=== PATIENT | male | born 1965 | race Caucasian/White ===

== ENCOUNTER → 2020-01-09 | Outpatient (CLI) | payer OTHER ==
[~2020-01-09] MED LIST: CONTRAST GIVEN. MC PRN; IOHEXOL 240 MG/ML 50ML VIAL. PO ONE; IOHEXOL 300 MG/ML 100ML VIAL. IV ONE
[2020-01-09 08:50] LABS: GFR 77.3
--- NOTE | 2020-01-09 09:55 | RAD ---
EXAM: Abdomen and pelvis CT with intravenous contrast. HISTORY: Ventral hernia. TECHNIQUE: Computed tomographic images of the abdomen and pelvis were obtained following the administration of intravenous contrast. Multiplanar reformatting was performed. *One or more of the following individualized dose reduction techniques were utilized for this examination: 1. Automated exposure control. 2. Adjustment of the mA and/or kV according to patient size. 3. Use of iterative reconstruction technique. COMPARISON: None. FINDINGS: Evaluation of the lower thorax demonstrates no infiltrate or pleural effusion. There is a 2 mm nodule within the posterior right lower lobe which is likely a faintly calcified granuloma. This is benign in appearance. There is no suspicious hepatic lesion. The gallbladder, pancreas and spleen are unremarkable. There is a small proximal duodenal diverticulum. The adrenal glands are unremarkable. There is no suspicious renal lesion or hydronephrosis. There is a ventral abdominal wall hernia to the right of midline containing fat and a segment of small bowel. The hernia defect measures approximately 6.0 cm transversely and 9.0 cm craniocaudally. There is no evidence of bowel incarceration or mechanical obstruction. There is a surgical anastomosis within the small bowel proximal to the hernia consistent with partial bowel resection. There are few distal colonic diverticula. There is no evidence of diverticulitis. The urinary bladder is unremarkable. There is stranding throughout the root of mesentery and there are multiple enlarged lymph nodes within the root of the mesentery. No retroperitoneal lymphadenopathy is seen. There is no suspicious osseous lesion. There are degenerative changes involving the spine. There is grade 1 anterolisthesis with bilateral pars defects at L5-S1. There is an incidental limbus vertebrae at L4. IMPRESSION: 1. Moderate to large ventral abdominal wall hernia to the right of midline at the level of the umbilicus containing fat and small bowel loop, measuring 9.0 x 6.0 cm. There is no evidence of bowel incarceration or mechanical obstruction related to the hernia. 2. Findings gated with partial small bowel resection. 3. Colonic diverticulosis. 4. Stranding and lymphadenopathy within the root of the mesentery. This is nonspecific and can be seen with mesenteric panniculitis. The possibility of an underlying neoplastic etiology is not completely excluded. Electronically signed by: Jewels Martinez MD (01/09/2020 9:52 AM) [id number]
== END ==
LOC: CT 09:13
PROVIDERS: ATTEND Surgery
DX: K43.9 Ventral hernia without obstruction or gangrene (principal); K57.30 Diverticulosis of large intestine without perforation or abscess without bleeding
CPT/HCPCS: 36415; 74177; 82565; 84520; Q9966; Q9967

== ENCOUNTER → 2020-01-10 | Outpatient (CLI) | payer OTHER | LOC: LAB 13:02 | PROVIDERS: ATTEND Surgery | DX: Z01.812 Encounter for preprocedural laboratory examination (principal); Z20.828 Contact with and (suspected) exposure to other viral communicable diseases; K43.9 Ventral hernia without obstruction or gangrene | CPT/HCPCS: U0003 ==

== ENCOUNTER 2020-01-14 06:04 | Observation (INO) | payer OTHER ==
[2020-01-14] VITALS (12 sets, daily range): BP systolic 104–132; BP diastolic 62–84
[~2020-01-14] VITALS: Ht 177.8 cm; Wt 101.5 kg
[2020-01-14] MEDS ORDERED: OMEP40CA45 PO (06:33)
[2020-01-14] MEDS ORDERED: INSU100I32 SQ (06:33)
[2020-01-14] MEDS ORDERED: GABA600T7 PO (06:33)
[2020-01-14] MEDS ORDERED: LOSA100T14 PO (06:33)
[2020-01-14] MEDS ORDERED: ASPI-630 PO (06:33)
[2020-01-14] MEDS ORDERED: EMPA25TA PO (06:33)
[2020-01-14] MEDS ORDERED: METF-658 PO (06:33)
[2020-01-14] MEDS ORDERED: GLIM4TAB8 PO (06:33)
[2020-01-14] MEDS ORDERED: VENL37.5 PO (06:33)
[2020-01-14] MEDS ORDERED: CRESTOR40 MG PO (06:33)
[2020-01-14] MEDS: INSULIN LISPRO 100 UNIT/ML 3ML VIAL for OP,RR ONLY. SQ PRN ×3 (06:48→13:32)
[2020-01-14] MEDS ORDERED: HYDROmorphone 2 MG/ML VIAL IV PRN ×3 (07:00→12:15)
[2020-01-14] MEDS ORDERED: fentaNYL PF VIAL 100 MCG/2 ML VIAL IV PRN (07:00)
[2020-01-14] MEDS ORDERED: LIDOCAINE 1% PF 2 ML VIAL. ID PRN (07:00)
[2020-01-14] MEDS ORDERED: IV RINGERS,LACTATED 1000ML 1,000 ML IV SCH (07:00)
[2020-01-14] MEDS ORDERED: ONDANSETRON PF 4 MG/2 ML VIAL. IV PRN (07:00)
[2020-01-14] MEDS ORDERED: MORPHINE SULFATE 2 MG/ML VIAL. IV PRN (07:00)
[2020-01-14] MEDS ORDERED: PROCHLORPERAZINE 10 MG/2 ML VIAL. IV PRN (07:00)
[2020-01-14] MEDS ORDERED: ROCURONIUM 50 MG/5 ML VIAL. ONE ×2 (07:12→09:07)
[2020-01-14] MEDS ORDERED: DEXAMETHASONE SOD PHOS 4 MG/ML VIAL ONE (07:13)
[2020-01-14] MEDS ORDERED: SEVOFLURANE 61 TO 120 MINUTES. IH ONE (07:13)
[2020-01-14] MEDS ORDERED: MIDAZOLAM HCL/PF 2 MG/2 ML VIAL. ONE (07:13)
[2020-01-14] MEDS ORDERED: PROPOFOL 10 MG/ML (20ML) VIAL. IV ONE (07:13)
[2020-01-14] MEDS ORDERED: fentaNYL PF VIAL 100 MCG/2 ML VIAL ONE ×4 (07:13→12:46)
[2020-01-14] MEDS ORDERED: ONDANSETRON PF 4 MG/2 ML VIAL. ONE (07:13)
[2020-01-14] MEDS ORDERED: FAMOTIDINE 20 MG/2 ML VIAL ONE (07:13)
[2020-01-14] MEDS ORDERED: KETOROLAC 30 MG/ML VIAL. ONE (07:13)
[2020-01-14] MEDS ORDERED: LIDOCAINE 2% PF 5 ML VIAL. ONE (07:14)
[2020-01-14] MEDS ORDERED: ePHEDrine PF IN SALINE 50 MG/10 ML SYRINGE. IV ONE (08:03)
[2020-01-14] MEDS ORDERED: PHENYLEPHRINE 10 MG/ML VIAL. ONE (08:37)
[2020-01-14] MEDS ORDERED: GLYCOPYRROLATE 1 MG/5 ML VIAL. ONE (10:06)
[2020-01-14] MEDS ORDERED: NEOSTIGMINE METHYLSULFATE 5 MG/5 ML SYRINGE. ONE (10:06)
[2020-01-14] MEDS: IV NORMAL SALINE 1000ML BAG 1,000 ML IV SCH (12:07)
[2020-01-14] MEDS ORDERED: 0.9 % SODIUM CHLORIDE 10 ML DISP.SYRIN. IV PRN (12:15)
[2020-01-14] MEDS ORDERED: ONDANSETRON PF 4 MG/2 ML VIAL. IVP PRN (12:15)
[2020-01-14] MEDS ORDERED: NALOXONE 0.4 MG/ML VIAL. IV PRN (12:15)
[2020-01-14] MEDS ORDERED: oxyCODONE/APAP 5/325 1 TAB TABLET PO PRN (12:15)
[2020-01-14] MEDS ORDERED: INSULIN LISPRO 100 UNIT/ML 3ML VIAL for OP,RR ONLY. SQ ONE ×2 (13:00)
[2020-01-14] MEDS: fentaNYL PF VIAL 100 MCG/2 ML VIAL IV PRN ×2 (13:15→13:34)
--- NOTE | 2020-01-14 13:32 | PDOC4 ---
Operative Note Operative Note Preoperative Diagnosis: Ventral hernia Postoperative Diagnosis: Same Procedure: Extensive adhesiolysis (requiring 1 1/2 hours), ventral hernia repair with mesh Surgeon: Patric Industrial Renderer: Dr Andrew SMITH Anesthesia: Gen EBL: 150 ml Specimen: Hernia sac to pathology Drains: 19FR TEREZA drain to subcutaneous space Complications: None Indications: The patient is a 54 year old male who was referred with a ventral hernia following prior abdominal surgery. The details and risks of surgical repair of the hernia were discussed. The risks include bleeding, infection, recurrence, bowel injury, pain, scar tissues, anesthesia risk, potential need for additional surgery or procedure. He understands and would like to proceed. Description: The patient was taken to the operating room and laid supine. General anesthesia was performed. The abdomen was prepped with chloroprep and draped with sterile towels, sheets, and an ioban. A vertical midline incision was made excising the prior scar. Cautery dissection was carried to the fascia. The fascial defect was identified, and there was marked and severe adhesions involving some small bowel to the hernia sac. An extensive lysis of adhesions was required to free the small intestine from the abdominal wall and hernia sac. The required meticulous dissection of the small bowel due to the dense nature of the adhesions. One and one half hours were required for this dissection. The hernia sac showed a prominent inflammatory reaction that seem atypical. This seemed to be concentrated in the areas of multiple non absorbing sutures placed during his prior surgery. It seemed most likely a severe foreign body reaction of the small bowel to the sutures. Gradually during the dissection the sutures were removed and the small bowel was fully mobilized. There were no enterotomies made and the small bowel appeared viable. There was a small serosal defect which was oversewn with 3-0 Vicryl. The hernia defect was then apparent and appeared fairly broad based. Subcutaneous flaps were developed to mobilize the anterior fascia from the skin. A retromuscular plane was then developed circumferentially around the defect. The posterior layer was closed with 0-PDS. A Ventrio ST elliptical mesh was then placed in this retromuscular plane. The mesh rested well providing coverage in all directions of the defect. The mesh was sutured in place around its periphery using 0-Prolene. Additional fixation was provided with the Securestrap tacking device. The facia was then closed over the mesh with 1 Prolene. A 19Fr TEREZA drain was left in the subcutaneous space which exited the R abdomen. This was secured to the skin with 2-0 silk. The deep subcutaneous tissues were closed with 0-Vicryl. The superficial subcutaneous tissues were closed with 3-0 Vicryl. The skin was approximated with 4-0 Monocryl. A sterile dressing was then applied. The patient tolerated the procedure well and was transferred to the PACU. At the end of the case all counts were correct. KUNAL JACOB MD Jan 14, 2020 13:32
[2020-01-14] MEDS: IV 1/2 NORMAL SALINE 1,000 ML IV SCH ×2 (14:31→21:42)
[2020-01-14] MEDS: BENZOCAINE/MENTHOL LOZENGE. PO PRN ×2 (20:26→23:05)
[2020-01-14] MEDS: oxyCODONE/APAP 5/325 1 TAB TABLET PO PRN (21:42)
[2020-01-15] MEDS: BENZOCAINE/MENTHOL LOZENGE. PO PRN ×4 (02:25→12:37)
[2020-01-15 03:00] VITALS: BP 104/62
[2020-01-15 07:53] VITALS: BP 125/73
[2020-01-15] MEDS: IV 1/2 NORMAL SALINE 1,000 ML IV SCH (08:07)
[2020-01-15] MEDS: oxyCODONE/APAP 5/325 1 TAB TABLET PO PRN ×2 (08:35→12:37)
--- NOTE | 2020-01-15 09:33 | NUR ---
SW following. Discussed with RN, pt from home, room air, clear liquid diet. Pt had an outpatient surgery yesterday (01/14/2020), was admitted for pain control. Pt wanting to discharge home today. RN advised no SW needs. SW will continue to follow, should any needs arise.
[2020-01-15] MEDS: IV NORMAL SALINE 1000ML BAG 1,000 ML IV SCH (10:13)
[2020-01-15 10:43] VITALS: BP 134/62
[2020-01-15] MEDS ORDERED: DOCU-109 PO (12:57)
[2020-01-15] MEDS ORDERED: OXYC1TAB15 PO (12:57)
--- NOTE | 2020-01-15 13:01 | DISCH ---
DISCHARGE INSTRUCTIONS Condition on Discharge Condition on Discharge: Stable Activity After Discharge Activity Instructions for Disc: Activity as tolerated Other activity instructions: ok to shower Lifting Instructions after Dis: No heavy lifting, No pulling or pushing Driving Instructions after Dis: Do not drive Diet after Discharge Diet after Discharge: Diabetic No Calorie Level Wound Incision Care Wound/Incision Care: May get incision wet Other wound/incision instructi: wear abdominal binder, ok to shower, drain care as instructed Contacting the after DC Call your doctor for: Concerns you may have Follow-Up Follow up with: Dr Spivey 1 week, call to schedule [phone] CHALO COLLINS APRN Jan 15, 2020 13:01
--- NOTE | 2020-01-15 13:25 | PDOC3 ---
Discharge Summary Visit Information Date of Admission: Jan 14, 2020 Date of Discharge: Jan 15, 2020 Admitting Diagnosis: ventral hernia Final Diagnosis ventral hernia Brief Hospital Course Allergies Allergies Coded Allergies Type Severity Reaction Last Updated Verified Sulfa (Sulfonamide Antibiotics) Allergy Severe 01/09/20 Yes Vital Signs Vital Signs Date Time Temp Pulse Resp B/P (MAP) Pulse Ox O2 Delivery O2 Flow Rate FiO2 01/15/20 10:43 97.7 80 18 134/62 (86) 100 Room Air 97.7 01/14/20 16:00 5.0 Lab Results Laboratory Tests Test 01/14/20 06:34 01/14/20 08:58 01/14/20 11:01 01/14/20 13:25 Glucose (Fingerstick) 146 mg/dL (70-99) 128 mg/dL (70-99) 197 mg/dL (70-99) 186 mg/dL (70-99) Test 01/14/20 21:03 01/15/20 07:19 01/15/20 11:09 Glucose (Fingerstick) 234 mg/dL (70-99) 151 mg/dL (70-99) 145 mg/dL (70-99) Laboratory Tests Test 01/14/20 13:25 01/14/20 21:03 01/15/20 07:19 01/15/20 11:09 Glucose (Fingerstick) 186 mg/dL (70-99) 234 mg/dL (70-99) 151 mg/dL (70-99) 145 mg/dL (70-99) Brief Hospital Course Mr. Becerra is a 54 old male who underwent. Extensive adhesiolysis (requiring 1 1/2 hours), ventral hernia repair with mesh. Postoperatively pain managed with oral medications, tolerating diet, ambulating, and urinating. Incision intact and drainage serosang at discharge. Will instruct on drain care for and will FU in clinic in one week Discharge Information Condition at Discharge: Stable Follow Up: Weeks (1) Disposition/Orders: D/C to Home Scheduled Aspirin (Aspirin) 81 Mg Tab.chew, 1 TAB PO DAILY for NA, #30 Ref 3 (Reported) Entered as Reported by: FABIANA JUAN on 01/14/20632 Last Taken: Unknown Dose on 01/06/20 Last Action: New Order on 01/14/20632 by FABIANA JUAN Docusate Sodium (Colace) 100 Mg Capsule, 1 CAP PO BID for constipation for 15 Days, #30 Ref 0 Prescribed by: Chalo Fairbanks on 01/15/20 1257 Empagliflozin (Jardiance) 25 Mg Tablet, 25 MG PO DAILY07 for DM, (Reported) Entered as Reported by: FABIANA JUAN on 01/14/20632 Last Taken: Unknown Dose on 01/13/20 Last Action: New Order on 01/14/20632 by FABIANA JUAN Gabapentin (Gabapentin) 600 Mg Tablet, 600 MG PO BID for NEUROGENIC PAIN, (Reported) Entered as Reported by: FABIANA JUAN on 01/14/20632 Last Taken: Unknown Dose on 01/13/20 Last Action: New Order on 01/14/20632 by FABIANA JUAN Glimepiride (Glimepiride) 4 Mg Tablet, 1 TAB PO DAILY for DM, #30 Ref 5 (Reported) Entered as Reported by: FABIANA JUAN on 01/14/20632 Last Taken: Unknown Dose on 01/13/20 Last Action: New Order on 01/14/20632 by FABIANA JUAN Insulin Glargine,Hum.rec.anlog (Basaglar Kwikpen U-100) 100 Unit/1 Ml Insuln.pen, 80 UNIT SQ DAILY07 for DM, (Reported) Entered as Reported by: FABIANA JUAN on 01/14/20632 Last Taken: Unknown Dose on 01/13/20 Last Action: New Order on 01/14/20632 by FABIANA JUAN Losartan Potassium (Losartan Potassium) 100 Mg Tablet, 100 MG PO DAILY for HYPERTENSION, (Reported) Entered as Reported by: FABIANA JUAN on 01/14/20632 Last Taken: Unknown Dose on 01/13/20 Last Action: New Order on 01/14/20632 by FABIANA JUAN Metformin Hcl (Metformin Hcl Er) 500 Mg Tab.er.24h, 500 MG PO BIDWMEALS for DM, (Reported) Entered as Reported by: FABIANA JUAN on 01/14/20632 Last Taken: Unknown Dose on 01/13/20 Last Action: New Order on 01/14/20632 by FABIANA JUAN Omeprazole (Omeprazole) 40 Mg Capsule.dr, 1 CAP PO DAILY for GERD, #30 Ref 3 (Reported) Entered as Reported by: FABIANA JUAN on 01/14/20632 Last Taken: Unknown Dose on 01/14/20599 Last Action: New Order on 01/14/20632 by FABIANA JUAN Rosuvastatin Calcium (Crestor) 40 Mg Tablet, 1 TAB PO DAILY for CHOLESTEROL, #30 Ref 5 (Reported) Entered as Reported by: FABIANA JUAN on 01/14/20632 Last Taken: Unknown Dose on 01/13/20 Last Action: New Order on 01/14/20632 by FABIANA JUAN Venlafaxine Hcl (Effexor Xr) 37.5 Mg Cap.er.24h, 1 CAP PO DAILY for MOOD, #90 Ref 3 (Reported) Entered as Reported by: FABIANA JUAN on 01/14/20632 Last Taken: Unknown Dose on 01/14/20599 Last Action: New Order on 01/14/20632 by FABIANA JUAN Scheduled PRN Oxycodone/Apap 5-325 (Percocet 5-325 Mg Tablet ) 1 Each Tablet, 1 TAB PO PRN Q4HRS PRN for MILD PAIN, 1ST CHOICE, #30 Ref 0 Prescribed by: Chalo Fairbanks on 01/15/20 1257 Justicifation of Admission Dx: Justifications for Admission: Justification of Admission Dx: Yes Comments: CHALO GARDNER MANUFACTURING SHIFT SUPERVISOR Jan 15, 2020 13:25
--- NOTE | 2020-01-15 14:31 | NUR ---
Pt left unit at approx 1420 by wheelchair via private vehicle with . Pt's IV removed with no complications, VSS. Discharge instructions, follow-up, and medications discussed at length with pt and . All additional questions addressed. Drain and dressing teaching provided.
--- NOTE | 2020-01-16 17:06 | PATHOLOGY ---
[facility] Accession Number: [id number] . 01 Material submitted: . hernia - HERNIA SAC . 01 Clinical history: . VENTRAL HERNIA . 02 Diagnosis: Segments of fibromembranous and fibroadipose tissue, ventral hernia repair: - Hernia sac showing reactive fibrosis, and focal chronic inflammation and foreign body giant cell reaction. (JPM:antwon; 01/16/2020) QMS 01/16/2020 1613 Local . 02 Electronically signed: . Chihco Mackenzie MD, Pathologist NPI- [id number] . 01 Gross description: . The specimen is received in formalin, labeled "Francisco Becerra, hernia sac". Received are multiple segments of pink-foster fibromembranous tissue with attached lobulated tissue measuring 7.7 x 7.5 x 2.6 cm in aggregate dimensions. No distinct nodules or lesions are noted grossly. The specimen is submitted representatively in cassette A1. (CAA; 01/15/2020) QA/[facility] 01/16/2020 1113 Local . 02 Pathologist provided ICD-10: K44.9 . 02 CPT . 956457 Specimen Comment: A courtesy copy of this report has been sent to [phone], [phone] Specimen Comment: [id number] Specimen Comment: Report sent to / DR CHENG Performed at: 01 [facility] [address], [place] [id number] MD Ezio Kaplan MD Phone: [phone] Performed at: 02 [facility] [address], [place] [id number] MD Chicho Mackenzie MD Phone: [phone]
== END 2020-01-15 14:20 | disposition home or self-care (01) ==
LOC: SURG 06:04 → 4 NORTH 12:07
PROVIDERS: ADMIT Surgery; ATTEND Surgery
DX: K43.9 Ventral hernia without obstruction or gangrene (principal); K66.0 Peritoneal adhesions (postprocedural) (postinfection); Z79.899 Other long term (current) drug therapy
CPT/HCPCS: 49560; 49568; 82962; 96361; 96374; A7015; C1713; G0378; G0379; J0690; J1100; J1170; J1815; J1885; J2250; J2370; J2405; J2704; J2710; J3010; J3490; J7120; 88302

== ENCOUNTER → 2020-08-14 | Outpatient (CLI) | payer OTHER ==
[~2020-08-14] MED LIST changes: +ASPI-630 PO; -CONTRAST GIVEN. MC PRN; +CRESTOR40 MG PO; +DOCU-109 PO; +EMPA25TA PO; +GABA600T7 PO; +GLIM4TAB8 PO; +INSU100I32 SQ; -IOHEXOL 240 MG/ML 50ML VIAL. PO ONE; -IOHEXOL 300 MG/ML 100ML VIAL. IV ONE; +LOSA100T14 PO; +METF-658 PO; +OMEP40CA7 PO; +OXYC1TAB15 PO; +VENL37.5 PO
--- NOTE | 2020-08-14 14:53 | KCIC ---
EXAM: Bilateral 3 views; lumbar peak, 3 views. HISTORY: Polyneuropathy. Polyarthritis. COMPARISON: None. FINDINGS: Bilateral hands: 3 views of both hands are obtained. There is no acute fracture, dislocation or sublu xation. The alignment and joint spaces are unremarkable. There is no radiodense foreign body. Bilateral feet: 3 views of both feet are obtained. There is no fracture, dislocation or subluxation. There are enthesophytes at the Achilles tendon insertions. The alignment and joint spaces are unremar kable. There is no radiodense foreign body. IMPRESSION: 1. No acute osseous finding. 2. No convincing radiographic evidence of arthritis. Electronically signed by: Jewels Martinez MD (08/14/2020 2:51 PM) [id number]
== END ==
LOC: KCIC 14:14
PROVIDERS: ATTEND Internal Medicine
DX: M76.62 Achilles tendinitis, left leg (principal); M76.61 Achilles tendinitis, right leg; G62.9 Polyneuropathy, unspecified; M13.0 Polyarthritis, unspecified; R76.8 Other specified abnormal immunological findings in serum; Z68.35 Body mass index [BMI] 35.0-35.9, adult
CPT/HCPCS: 73130-50; 73630-50